=== PATIENT | female | born 1960 | race Caucasian/White ===

== ENCOUNTER → 2018-01-30 | Outpatient (CLI) | payer BC ==
[2015-07-11 14:02] VITALS: BP 134/64
[~2018-01-30] MED LIST: COENZYME Q-10100 M1 PO; CYMBALTA60 M1 PO; LORAZEPAM1 M1 PO; PROGESTERONE100 MG PO; PROTONIX40 MG/Pack PO; VITAMIN D1000 IU PO
== END ==
LOC: RAD 08:21
DX: R05 Cough (principal)
CPT/HCPCS: Q9967